=== PATIENT | male | born 1935 | race Caucasian/White ===

== ENCOUNTER → 2021-01-31 | Outpatient (CLI) | payer MEDICARE ==
--- NOTE | 2021-01-31 17:02 | RAD ---
US DPLX ARTR EXTREM LOWER BILAT Indication: Reason: COLD FEET, HTN, HX OF SMOKING, DIABETIC / Spl. Instructions: / History: Comparison: None. Procedure: Real-time grayscale, color flow Doppler, and Doppler spectral waveform analysis of the art erial system of the lower extremity is performed. Findings: Right lower extremity: Extensive atheromatous plaque. Elevated velocity within the right peroneal art kota measures 166 cm/s. Monophasic waveform within the dorsalis pedis artery. No occlusion. Left lower extremity: Triphasic or biphasic waveforms throughout the left lower extremity. Mildly umberto vated velocity within the left common femoral artery measures 157 cm/s. Extensive atheromatous plaque . No occlusion. IMPRESSION: 1. Extensive bilateral atheromatous plaque. 2. Mildly elevated velocity within the right peroneal artery and left common femoral artery, may ind icate 30-49 percent stenosis. Electronically signed by: Xander Paez DO (01/31/2021 5:00 PM) [id number]
== END ==
LOC: US 09:50
PROVIDERS: ATTEND Nurse Practitioner Gerontology
DX: I70.203 Unspecified atherosclerosis of native arteries of extremities, bilateral legs (principal); I10 Essential (primary) hypertension; Z87.891 Personal history of nicotine dependence
CPT/HCPCS: 93925